=== PATIENT | female | born 1995 | race African-American/Black ===

== ENCOUNTER → 2018-07-06 18:52 | Emergency (ER) | payer OTHER ==
[~2018-07-06 18:52] MED LIST: Ketorolac INJ* 30 MG/ML 1 ML VIAL IV PUSH ONE; Metoclopramide IV* 5 MG/ML 2 ML VIAL IV SLOW PU ONE; NS 0.9% 1000 ML** 1,000 ML IV ONE
--- NOTE | 2018-07-06 19:25 | ED ---
Abdominal Pain/Female - HPI Summary HPI Summary: This patient is a 23 year old F presenting to [facility] with a chief complaint of lower abdominal pain since this morning. The patient rates the pain 8/10 in severity. She says that she had rougher than normal intercourse this morning and this has led me to feeling sick and pain in my stomach region. She was at [facility] and she was sent here for imaging. Patient reports nausea this morning, vomiting, headache, and constipation (last BM yesterday). Patient denies diarrhea. Her LNMP was 2 weeks ago and reports that she had a negative test while at [facility]. Patient has no PSHx and is not taking any medications. - History of Current Complaint Chief Complaint: EDAbdPain Stated Complaint: "LOWER ABD PAIN VIA [facility]NOW" PER PT Time Seen by Provider: 07/06/18 19:11 Hx Obtained From: Patient Onset/Duration: Sudden Onset, Lasting Hours, Still Present Timing: Constant Severity Initially: Severe Severity Currently: Severe Pain Intensity: 8 Pain Scale Used: 0-10 Numeric Location: Other - Lower quadrants Radiates: No Associated Signs and Symptoms: Positive: Constipation, Nausea, Vomiting, Other: - Headache. Negative: Diarrhea Allergies/Adverse Reactions: Allergies Allergy/AdvReac Type Severity Reaction Status Date / Time No Known Allergies Allergy Verified 07/06/18 18:55 PMH/Surg Hx/FS Hx/Imm Hx Sensory History: Denies: Hx Deafness EENT History: Denies: Hx Deafness - Surgical History Surgery Procedure, Year, and Place: None Infectious Disease History: No Infectious Disease History: Denies: Traveled Outside the [place] in Last 30 Days - Family History Known Family History: Negative: Diabetes - Social History Alcohol Use: Occasionally Substance Use Type: Reports: None Smoking Status (MU): Never Smoked Tobacco Review of Systems Positive: Abdominal Pain, Vomiting, Nausea, Other - Constipation. Negative: Diarrhea Positive: Headache All Other Systems Reviewed And Are Negative: Yes Physical Exam - Summary Physical Exam Summary: VITAL SIGNS: Reviewed. GENERAL: Patient is a well-developed and nourished FEMALE who is lying comfortable in the stretcher. Patient is not in any acute respiratory distress. HEAD AND FACE: No signs of trauma. No ecchymosis, hematomas or skull depressions. No sinus tenderness. EYES: PERRLA, EOMI x 2, No injected conjunctiva, no nystagmus. EARS: Hearing grossly intact. Ear canals and tympanic membranes are within normal limits. MOUTH: Oropharynx within normal limits. NECK: Supple, trachea is midline, no adenopathy, no JVD, no carotid bruit, no c- spine tenderness, neck with full ROM CHEST: Symmetric, no tenderness at palpation LUNGS: Clear to auscultation bilaterally. No wheezing or crackles. CVS: Regular rate and rhythm, S1 and S2 present, no murmurs or gallops appreciated. ABDOMEN: LLQ tenderness, hyperactive bowel sounds. No signs of distention. No rebound no guarding, and no masses palpated. EXTREMITIES: FROM in all major joints, no edema, no cyanosis or clubbing. NEURO: Alert and oriented x 3. No acute neurological deficits. Speech is normal and follows commands. SKIN: Dry and warm Triage Information Reviewed: Yes Vital Signs On Initial Exam: Initial Vitals Temp Pulse Resp BP Pulse Ox 98.8 F 83 16 135/80 99 07/06/18 18:55 07/06/18 18:55 07/06/18 18:55 07/06/18 18:55 07/06/18 18:55 Vital Signs Reviewed: Yes Diagnostics - Vital Signs Vital Signs Temp Pulse Resp BP Pulse Ox 07/06/18 19:15 79 132/77 99 07/06/18 18:55 98.8 F 83 16 135/80 99 - Laboratory Result Diagrams: 07/06/18 20:23 07/06/18 20:23 Lab Statement: Any lab studies that have been ordered have been reviewed, and results considered in the medical decision making process. - Radiology Abdomen X-Ray Radiology Interpretation Completed By: ED Physician Summary of Radiographic Findings: 21:32 - No acute process. Pending official report. - Ultrasound No standard instances Ultrasound Interpretation Completed By: Radiologist Summary of Ultrasound Findings: Pelvis Ultrasound 20:44 - Hemorrhagic appearing cyst in the left ovary measuring 5 x 3.0 cm. No evidence of torsion. ED Physician has reviewed this imaging report. Abdominal Pain Fem Course/Dx - Course Course Of Treatment: This patient is a 23 year old F presenting to [facility] with a chief complaint of lower abdominal pain since this morning. The abdomen x-ray was negative, but the pelvis US showed a left ovarian cyst. Patient will be d/c home with a dx of ovarian cyst and instructions to follow up with an obgyn on . - Diagnoses Provider Diagnoses: Left ovarian cyst Discharge - Sign-Out/Discharge Documenting (check all that apply): Patient Departure - D/C home Patient Received Moderate/Deep Sedation with Procedure: No - Discharge Plan Condition: Stable Disposition: HOME Prescriptions: Ibuprofen TAB* [Motrin TAB* 800 MG] 800 mg PO Q6H PRN #30 tab PRN Reason: Pain oxyCODONE/Acetamin 5/325 MG* [Percocet 5/325 TAB*] 1 tab PO Q6H PRN #10 tab MDD 4 PRN Reason: Pain Patient Education Materials: Ovarian Cyst (ED) Referrals: Piero De León MD [Medical Doctor] - 2 Days Additional Instructions: Follow up with [facility], on Sunday07/08/18. PLEASE RETURN TO THE ED IMMEDIATELY FOR WORSENING OR CONCERNING SYMPTOMS. - Attestation Statements Document Initiated by Scribe: Yes Documenting Scribe: Malik Kennedy Provider For Whom Scribe is Documenting (Include Credential): Blanca Flannery MD Scribe Attestation: Malik Espinoza, scribed for Blanca Flannery MD on 07/06/18 at [id number]. Status of Scribe Document: Ready
[2018-07-06 19:54] LABS: Urine Appearance Clear; Urine Bilirubin Negative (Negative); Urine Blood Negative (Negative); Urine Color Yellow; Urine Glucose Negative (Negative); Urine Ketones 2+ (Negative); Urine Nitrite Negative (Negative); Urine Protein Negative (Negative); Urine Specific Gravity 1.024 (1.010-1.030); Urine Urobilinogen Negative (Negative)
[2018-07-06 20:40] LABS: ABS Lymphocytes 1.2 10^3/ul (1.0-4.8); ABS Monocytes 0.6 10^3/ul (0-0.8); ABS Neutrophils 9.1 10^3/ul (1.5-7.7); Eosinophil % 0.1 %; Hematocrit 38 % (35-47); Hemoglobin 12.5 g/dL (12.0-16.0); Lymphocyte % 10.9 %; Mean Corpuscular HGB Conc 33 g/dL (31-36); Mean Corpuscular Hemoglobin 29 pg (27-31); Mean Corpuscular Volume 88 fL (80-97); Mean Platelet Volume 7.2 fL (7.4-10.4); Platelet Count 262 10^3/uL (150-450); Red Blood Count 4.29 10^6 /uL (3.70-4.87); Red Cell Distribution Width 13 % (10.5-15); White Blood Count 10.9 10^3/uL (3.5-10.8)
[2018-07-06 20:52] LABS: ALT 8 U/L (7-52); AST 16 U/L (13-39); Albumin 4.5 g/dL (3.2-5.2); Albumin/Globulin Ratio 1.6 (1-3); Alkaline Phosphatase 41 U/L (34-104); Anion Gap 8 mmol/L (2-11); BUN/Creatinine Ratio 20.7 (8-20); Blood Urea Nitrogen 17 mg/dL (6-24); C Reactive Protein 2.17 mg/L (<8.01); CO2 Carbon Dioxide 23 mmol/L (22-32); Calcium 9.3 mg/dL (8.6-10.3); Chloride 106 mmol/L (101-111); EGFR African American 105.5 (>60); EGFR Non-African American 87.2 (>60); Globulin 2.8 g/dL (2-4); Glucose 131 mg/dL (70-100); Potassium 3.7 mmol/L (3.5-5.0); Sodium 137 mmol/L (135-145); Total Protein 7.3 g/dL (6.4-8.9)
[2018-07-06 20:59] LABS: HCG Pregnancy < 0.60 mIU/mL
[2018-07-06 22:06] VITALS: BP 115/74
== END | disposition home or self-care (01) ==
LOC: ED 18:52
DX: N83.202 Unspecified ovarian cyst, left side (principal)
CPT/HCPCS: 36415; 74019; 76856; 80053; 81003; 83690; 84702; 85025; 86140; 96361; 96374; 96375; 99283; J1885; J2765